=== PATIENT | female | born 1995 | race Caucasian/White ===

== ENCOUNTER → 2016-12-18 | Outpatient (CLI) | payer BC, OTHER ==
[2016-12-18 16:52] LABS: CH 30.4; HCT 37.7 % (34.0-46.0); HDW 2.46; HGB 12.9 gm/dL (11.4-16.0); MCH 30.8 pg (25.0-35.0); MCHC 34.3 g/dL (31.0-37.0); Mean Platelet Volume 6.7; WBC 9.9 k/uL (3.8-10.6)
[2016-12-18 17:07] LABS: Glucose 71 mg/dL (74-99); Non-African American GFR(MDRD) >60 (>60 ml/min/1.73 sqM)
[2016-12-18 17:38] LABS: Hepatitis B Surface Ag Index 0.05
[2016-12-19 02:04] LABS: Treponemal Ab Non-Reactive (Non-Reactive)
[2016-12-19 05:19] LABS: Toxoplasma Antibody (IgG) <3.0 IU/mL (<7.2)
== END | disposition home or self-care (01) ==
LOC: LABWHC1 16:19
PROVIDERS: ATTEND Obstetrics & Gynecology
DX: Z34.80 Encounter for supervision of other normal pregnancy, unspecified trimester (principal)
CPT/HCPCS: 36415; 82565; 82947; 85027; 86762; 86777; 86778; 86780; 86850; 86900; 86901; 87340

== ENCOUNTER 2017-05-11 02:25 | Inpatient (IN) | payer BC, OTHER ==
[2017-05-11] MEDS ORDERED: LIDOCAINE 1% (PF) 10 MG/ML (30 ML SDV) SQ PRN (04:11)
[2017-05-11] MEDS ORDERED: METHYLERGONOVINE 0.2 MG/ML 1 ML AMP IM PRN (04:11)
[2017-05-11] MEDS ORDERED: TERBUTALINE 1 MG/ML VIAL SQ PRN (04:11)
[2017-05-11] MEDS ORDERED: OXYTOCIN 10 UNIT/ML 1 ML VIAL IM PRN (04:11)
[2017-05-11] MEDS ORDERED: CARBOPROST TROMETHAMINE 250 MCG/ML 1 ML AMP IM PRN (04:11)
[2017-05-11] MEDS: LACTATED RINGERS 1,000 ML IV SCH ×2 (04:20→04:48)
[2017-05-11 04:25] LABS: Basophils % (A) 0 %; Eosinophils # (A) 0.1 k/uL (0-0.7); Eosinophils % (A) 1 %; HCT 34.2 % (34.0-46.0); HGB 11.4 gm/dL (11.4-16.0); Lymphocytes # (A) 1.6 k/uL (1.0-4.8); Lymphocytes % (A) 16 %; MCH 28.6 pg (25.0-35.0); MCHC 33.5 g/dL (31.0-37.0); MCV 85.4 fL (80.0-100.0); Mean Platelet Volume 7.4; Monocytes # (A) 0.7 k/uL (0-1.0); Monocytes % (A) 7 %; Neutrophils # (A) 7.3 k/uL (1.3-7.7); Neutrophils % (A) 73 %; Platelet Count 202 k/uL (150-450); RDW 14.4 % (11.5-15.5); WBC 10.1 k/uL (3.8-10.6)
[2017-05-11 04:42] VITALS: BMI 33.3
[2017-05-11] MEDS ORDERED: fentaNYL (PF) 50 MCG/ML 5 ML AMP ONE (04:53)
[2017-05-11] MEDS ORDERED: BUPIVACAINE (PF) 0.25% 30 ML VIAL ONE (04:53)
[2017-05-11] MEDS ORDERED: SODIUM CHLORIDE 0.9% 100 ML BAG ONE (04:53)
--- NOTE | 2017-05-11 07:24 | P.HPOB ---
History of Present Illness H&P Date: 05/11/17 Chief Complaint: Contractions This is a 21-year-old female 2 para 1 with an estimated date of confinement of 05/10/2017, estimated gestational age of 40 and one sevenths weeks, who presents to labor and delivery with complaints of contractions since yesterday evening. They became more intense and slightly closer together and therefore she came in. She did make cervical change in triage over one hour. She is therefore admitted for active labor. Her care has been with Dr. Mejia and has been uncomplicated per patient. labs: GC/Chlamydia-negative Rubella-immune Syphilis antibody-negative nonreactive Toxoplasma-negative Random glucose-71 Hepatitis B surface antigen-negative Hemoglobin-12.9 Blood type-O+ Antibody screen-negative Obstetrical ultrasound-normal anatomy One hour Glucola-105 Group B streptococcus-negative Obstetrical history: . History of 1 vaginal delivery at term. Gynecologic history: Negative Review of Systems Constitutional: Denies chills, Denies fever Eyes: denies blurred vision, denies pain Ears, nose, mouth and throat: Denies headache, Denies sore throat Cardiovascular: Denies chest pain, Denies shortness of breath Respiratory: Denies cough Gastrointestinal: Reports abdominal pain (Irregular contractions) Genitourinary: Reports pelvic pain, Reports Musculoskeletal: Reports low back pain Integumentary: Denies pruritus, Denies rash Neurological: Denies numbness, Denies weakness Psychiatric: Denies anxiety, Denies depression Past Medical History Past Medical History: No Reported History History of Any Multi-Drug Resistant Organisms: None Reported Past Surgical History: No Surgical Hx Reported Past Anesthesia/Blood Transfusion Reactions: No Reported Reaction Past Psychological History: No Psychological Hx Reported Smoking Status: Never smoker Past Alcohol Use History: None Reported Past Drug Use History: None Reported - Past Family History Mother Family Medical History: No Reported History Medications and Allergies Home Medications Medication Instructions Recorded Confirmed Type Pnv,Calcium 72/Iron/Folic Acid 1 tab PO DAILY 04/05/16 04/05/16 History [ Plus Tablet] Allergies Allergy/AdvReac Type Severity Reaction Status Date / Time No Known Allergies Allergy Verified 04/05/16 06:12 Exam Osteopathic Statement: *. No significant issues noted on an osteopathic structural exam other than those noted in the History and Physical/Consult. - Vital Signs Vital signs: Vital Signs Temp Pulse Resp BP 02/03/18 02:41 97.6 F 84 18 115/53 Intake and Output 05/10/17 05/11/17 05/11/17 22:59 06:59 14:59 Other: Weight 82.554 kg HEENT: Within normal limits Heart: Regular rate and rhythm Lungs: Clear to auscultation bilaterally Abdomen: Cervix: Initially was 5 cm in triage and did make change to 6 cm over 1 hour period of time. heart tones: Reactive Contractions: Every 5-7 minutes Extremities: Negative Homans Results Result Diagrams: 05/11/17 04:15 Assessment and Plan (1) 40 weeks gestation of Current Visit: Yes Status: Acute Code(s): Z3A.40 - 40 WEEKS GESTATION OF SNOMED Code(s): 37041595 Plan: Admission for active labor. Epidural anesthesia. Expectant management.
[2017-05-11] MEDS ORDERED: OXYTOCIN 20 UNITS/1000 ML NS 1,000 ML IV SCH ×2 (08:30→10:32)
[2017-05-11] MEDS ORDERED: LANOLIN CREAM 5 GM TUBE TOPICAL PRN (10:32)
[2017-05-11] MEDS ORDERED: WITCH HAZEL 1 EACH MED..PAD TOPICAL PRN (10:32)
[2017-05-11] MEDS ORDERED: ZOLPIDEM 5 MG TAB PO PRN (10:32)
[2017-05-11] MEDS ORDERED: diphenhydrAMINE 50 MG CAP PO PRN (10:32)
[2017-05-11] MEDS ORDERED: HYDROCORTISONE 2.5% RECTAL CREAM 30 GM TUBE RECTAL PRN (10:32)
[2017-05-11] MEDS ORDERED: diphenhydrAMINE 50 MG/ML 1 ML VIAL IVP PRN ×2 (10:32)
[2017-05-11] MEDS ORDERED: BENZOCAINE/MENTHOL SPRAY 1 GM/SPRAY AEROSOL TOPICAL PRN (10:32)
[2017-05-11] MEDS ORDERED: diphenhydrAMINE 25 MG CAP PO PRN (10:32)
[2017-05-11] MEDS ORDERED: SIMETHICONE 80 MG CHEWABLE PO PRN (10:32)
--- NOTE | 2017-05-11 10:40 | P.PROBDLV ---
Vaginal Delivery Note - . Vaginal Delivery Note: The patient progressed to complete dilation after epidural anesthesia and oxytocin augmentation of labor. She did have artificial rupture of membranes with clear fluid noted. 's head came to a crown. With one further push, the infant's head delivered across the perineum followed by the anterior shoulder. Nose and mouth were bulb suctioned. With one further push, the remainder the easily delivered and was placed on mother's abdomen. Cord was clamped and cut and was taken to warmer for evaluation. A viable male was noted with scores of 8 at 1 minute and 9 at 5 minutes and infant weight of 8 lbs. 3 oz. Placenta delivered shortly thereafter, intact, with a three-vessel cord. Uterus did contract fairly well after oxytocin was given and uterine massage was carried out. Bladder was also drained with a catheter. Inspection of the perineum revealed a right periurethral laceration and a first-degree perineal laceration. These areas were anesthetized with 1% lidocaine. The right periurethral laceration was sutured with 3-0 Vicryl suture in a running locked fashion. The first-degree laceration was sutured with 2-0 Vicryl suture in a running locked fashion. Estimated blood loss is approximately 200 mL's. Mother and are in stable condition.
[2017-05-11] MEDS: SENNOSIDES-DOCUSATE SODIUM 1 EACH TAB PO SCH ×2 (15:09→21:06)
[2017-05-11] MEDS: IBUPROFEN 600 MG TAB PO PRN (21:06)
[2017-05-11 21:32] VITALS: TEMP 98
[2017-05-12] MEDS: IBUPROFEN 600 MG TAB PO PRN ×3 (02:12→18:26)
[2017-05-12 07:19] LABS: Basophils % (A) 0 %; Eosinophils # (A) 0.1 k/uL (0-0.7); Eosinophils % (A) 1 %; HCT 31.7 % (34.0-46.0); HGB 10.4 gm/dL (11.4-16.0); Lymphocytes # (A) 1.6 k/uL (1.0-4.8); Lymphocytes % (A) 18 %; MCH 28.4 pg (25.0-35.0); MCHC 32.7 g/dL (31.0-37.0); MCV 86.8 fL (80.0-100.0); Mean Platelet Volume 7.6; Monocytes # (A) 0.5 k/uL (0-1.0); Monocytes % (A) 6 %; Neutrophils # (A) 6.3 k/uL (1.3-7.7); Neutrophils % (A) 72 %; Platelet Count 173 k/uL (150-450); RBC 3.65 m/uL (3.80-5.40); RDW 14.7 % (11.5-15.5); WBC 8.7 k/uL (3.8-10.6)
[2017-05-12] MEDS: ACETAMINOPHEN TAB 325 MG TAB PO PRN ×2 (08:04→22:40)
[2017-05-12] MEDS: SENNOSIDES-DOCUSATE SODIUM 1 EACH TAB PO SCH ×2 (08:23→16:25)
--- NOTE | 2017-05-12 12:10 | P.PNOBGVD ---
Subjective - Subjective Principal diagnosis: Status post vaginal delivery day #1 Interval history: Patient is doing well. She is breast-feeding. Lochia is decreasing. Pain is well-controlled with ibuprofen. The baby did have an apneic episode last night and therefore she plans to stay 1 more night. Patient reports: Reports appetite normal, Reports voiding normally, Reports pain well controlled, Reports ambulating normally : nursing well Objective - Latest Vital Signs Latest vital signs: Vital Signs Temp Pulse Resp BP 05/12/17 07:52 98 F 94 16 133/74 05/12/17 00:00 98 F 80 15 120/74 05/11/17 20:00 98 F 75 15 115/70 05/11/17 16:00 98.4 F 74 16 111/77 05/11/17 12:43 98.4 F 61 14 117/57 05/11/17 12:13 52 L 14 113/57 - Exam Extremities: Present: normal. Absent: tenderness Abdomen: Present: normal appearance, soft. Absent: distention, tenderness Uterus: Present: normal, firm. Absent: tenderness - Labs Labs: Abnormal Lab Results - Last 24 Hours (Table) 05/12/17 Range/Units 07:05 RBC 3.65 L (3.80-5.40) m/uL Hgb 10.4 L (11.4-16.0) gm/dL Hct 31.7 L (34.0-46.0) % Assessment and Plan Assessment: Impression is status post vaginal delivery day #1 (1) 40 weeks gestation of Current Visit: Yes Status: Acute Code(s): Z3A.40 - 40 WEEKS GESTATION OF SNOMED Code(s): 27165069 Plan: Plan is to continue with care today. Anticipate discharge home tomorrow.
[2017-05-13 00:29] VITALS: BP 119/62; PULSE 78; RESP 15
[2017-05-13] MEDS: IBUPROFEN 600 MG TAB PO PRN ×2 (05:35→14:01)
--- NOTE | 2017-05-13 06:15 | P.PNOBGVD ---
Subjective - Subjective Patient reports: Reports appetite normal, Reports voiding normally, Reports pain well controlled, Reports ambulating normally : doing well Objective - Latest Vital Signs Latest vital signs: Vital Signs Temp Pulse Resp BP 05/13/17 00:00 98 F 78 15 119/62 05/12/17 16:00 98 F 86 16 126/74 05/12/17 07:52 98 F 94 16 133/74 - Exam Lungs: bilateral: normal Chest: Normal S1, Normal S2 Extremities: Present: normal Abdomen: Present: normal appearance, soft Uterus: Present: normal, firm - Labs Labs: Abnormal Lab Results - Last 24 Hours (Table) 05/12/17 Range/Units 07:05 RBC 3.65 L (3.80-5.40) m/uL Hgb 10.4 L (11.4-16.0) gm/dL Hct 31.7 L (34.0-46.0) % Assessment and Plan Assessment: day #2. Patient is resting without complaints. Vital signs are stable she is afebrile. Uterus is firm nontender she's having normal lochia. My impression is a normal course. Plan is to continue routine care discharge home later today. (1) 40 weeks gestation of Current Visit: Yes Status: Acute Code(s): Z3A.40 - 40 WEEKS GESTATION OF SNOMED Code(s): 21270279
--- NOTE | 2017-05-13 06:15 | P.DS ---
Providers Date of admission: 05/11/17 04:13 Expected date of discharge: 05/13/17 Attending physician: Pee Mejia Primary care physician: Ronit Muñoz - Discharge Diagnosis(es) (1) 40 weeks gestation of Current Visit: Yes Status: Acute Hospital Course: Please see dictated H&P for intimate details of this patient's admission. Brief summary this pleasant 21-year-old 2 para 1 female 40 and one sevenths weeks gestation admitted to labor and delivery in active labor. Patient quickly goes on have a vaginal delivery viable male infant. Please see dictated delivery note. day #2 patient's felt be stable for discharge home follow up with me in 6 weeks. Procedures: Normal spontaneous vaginal delivery. Patient Condition at Discharge: Good Plan - Discharge Summary New Discharge Prescriptions: New Ibuprofen [Motrin] 600 mg PO Q6HR PRN #40 tab PRN Reason: Mild Pain Or Fever >= 100.5 No Action Pnv,Calcium 72/Iron/Folic Acid [ Plus Tablet] 1 tab PO DAILY Discharge Medication List Pnv,Calcium 72/Iron/Folic Acid [ Plus Tablet] 1 tab PO DAILY 04/05/16 [ History] Ibuprofen [Motrin] 600 mg PO Q6HR PRN #40 tab 05/13/17 [Rx] Follow up Appointment(s)/Referral(s): Pee Mejia MD [STAFF PHYSICIAN] - 6 Weeks Patient Instructions/Handouts: Vaginal Delivery (DC) Activity/Diet/Wound Care/Special Instructions: No intercourse or anything per vagina for 6 weeks. Please call if any fever, chills, excessive vaginal bleeding, and/or abdominal pain. Discharge Disposition: HOME SELF-CARE
[2017-05-13] MEDS: SENNOSIDES-DOCUSATE SODIUM 1 EACH TAB PO SCH (08:00)
--- NOTE | 2017-05-13 08:37 | P.MSEPDOC ---
Presenting Problems - Arrival Data Date of Arrival on Unit: 05/11/17 Time of Arrival on Unit: 04:15 Mode of Transport: Ambulatory - Complaint OB-Reason for Admission/Chief Complaint: Possible Onset of Labor Comment: Contractions that started at 1645 yesterday and are every 7-10 minutes apart Medical History - Information : 2 Para: 1 Term: 1 : 0 Abortions: Spontaneous or Elective: 0 Number of Living Children: 1 - Gestational Age Gestational Age by JESUS (wks/days): 40 Weeks and 1 Days - History Complications: No Care Review of Systems - Review of Systems Constitutional: No problems Breast: No problems ENT: No problems Cardiovascular: No problems Respiratory: No problems Gastrointestinal: No problems Genitourinary: No problems Musculoskeletal: No problems Neurological: No problems Skin: No problems Vital Signs - Temperature Temperature: 98 F Temperature Source: Oral - Pulse Right Brachial Pulse Rate: 78 Pulse Assessment Method: Automatic Cuff - Respirations Respiratory Rate: 15 Oxygen Delivery Method: Room Air - Blood Pressure Right Arm Blood Pressure: 119/62 Blood Pressure Mean: 81 Blood Pressure Source: Automatic Cuff Medical Screen Scoring (Pre) - Cervical Exam Dilation: 4-7 cm = 2 Effacement: More than 50% = 2 Membranes: Intact - Uterine Contractions Frequency: > 5 minutes apart = 1 Duration: N/A Intensity: N/A - Maternal Vital Signs Maternal Temperature: N/A Maternal Blood Pressure: N/A Signs of Preeclampsia: N/A Maternal Respirations: N/A - Pain Assessment Pain Location and Character: Lower, Abdomen Pain Scale Used: Numeric (1 - 10) Pain Intensity: 7 Pain Description: Cramping - Maternal Trauma Maternal Trauma: N/A - Assessment Baseline FHR: 135 Heart Rate - NICHD Category: Category I (Normal) = 0 NST: Reactive Position: N/A Station: N/A - Total Score Total Score (Pre): 5 - Level of Risk Level of Risk: Low (0-5) Medical Screen Scoring (Post) - Cervical Exam Dilation: 4-7 cm = 2 Effacement: More than 50% = 2 Membranes: Intact - Uterine Contractions Frequency: > 5 minutes apart = 1 Duration: > 40 seconds = 2 Intensity: Contraction palpated strong = 1 - Maternal Vital Signs Maternal Temperature: N/A Maternal Blood Pressure: N/A Signs of Preeclampsia: N/A Maternal Respirations: N/A - Pain Assessment Pain Location and Character: Abdomen, Hip Pain Scale Used: Numeric (1 - 10) Pain Intensity: 9 Pain Management Goal: 2 Pain Description: *Acute, Aching, Burning, Cramping Pain Radiation Location: none Pain Frequency: Intermittent Pain Duration: 4 Pain Duration Units: Hours Pain Behavior: Fidgeting Pain Aggravating Factors: Contractions - Maternal Trauma Maternal Trauma: N/A - Assessment Heart Rate: 125 Heart Rate - NICHD Category: Category I (Normal) = 0 NST: Reactive Position: N/A Station: N/A - Total Score Total Score (Post): 8 - Post Treatment Level of Risk Post Treatment Level of Risk: Medium (6-9) Physician Notification (Post) - Physician Notified Physician Notified Date: 05/11/17 Physician Notified Time: 04:11 Physician/Practitioner Notified:: Dr Muñoz New Order Received: Yes Disposition - Disposition OB Disposition: Admit, LDRP Suite I agree with the RN Medical Screening Exam: Yes Risk & Benefit of care provided described in d/c instruction: Yes Diagnosis: ENCOUNTER FOR FULL-TERM UNCOMPLICATED DELIVERY
== END 2017-05-13 18:10 | disposition home or self-care (01) | DRG 775 ==
LOC: FBPOP 02:25 → 4FBP 04:13
PROVIDERS: ADMIT Obstetrics & Gynecology; ATTEND Obstetrics & Gynecology
PROC: 10E0XZZ Delivery of Products of Conception, External Approach (ICD-10-PCS; principal; 2017-05-11)
PROC: 10907ZC Drainage of Amniotic Fluid, Therapeutic from Products of Conception, Via Natural or Artificial Opening (ICD-10-PCS; 2017-05-11)
PROC: 0HQ9XZZ Repair Perineum Skin, External Approach (ICD-10-PCS; 2017-05-11)
PROC: 0UQMXZZ Repair Vulva, External Approach (ICD-10-PCS; 2017-05-11)
PROC: 00HU33Z Insertion of Infusion Device into Spinal Canal, Percutaneous Approach (ICD-10-PCS; 2017-05-11)
PROC: 3E0R3NZ Introduction of Analgesics, Hypnotics, Sedatives into Spinal Canal, Percutaneous Approach (ICD-10-PCS; 2017-05-11)
DX: O48.0 Post-term pregnancy (principal); O71.82 Other specified trauma to perineum and vulva; O70.0 First degree perineal laceration during delivery; Z37.0 Single live birth; Z3A.40 40 weeks gestation of pregnancy
CPT/HCPCS: 59025; 85025; 88307; 99213

== ENCOUNTER 2018-05-13 05:27 | Emergency (ER) | payer BC, OTHER ==
[2018-05-13 05:35] VITALS: RESP 18
--- NOTE | 2018-05-13 06:16 | ED ---
Female Urogenital HPI - General Source: patient, family Mode of arrival: ambulatory Limitations: no limitations - History of Present Illness Complaint: vaginal bleeding -: hour(s) Location: LLQ Radiation: non-radiating Severity: moderate Quality: cramping Consistency: now resolved Improves with: none Worsens with: none Patient : Yes Number of weeks : 10 - Related Data : 3 Para: 2 <Prashanth Xiao - Last Filed: 05/13/18 07:47> <Joe Garcia - Last Filed: 05/13/18 08:59> - General Chief complaint: Vaginal Bleeding Stated complaint: Vaginal Bleeding 10 Weeks Time Seen by Provider: 05/13/18 06:05 - History of Present Illness Initial comments: Patient is 22-year-old woman, , approximately 10 weeks . She states that she had a dream that she had urinated, and awakened to find that she had had some vaginal bleeding. The patient states she did have a little bit of cramping in the left lower quadrant of the preceding evening. She currently is not having pain. (Prashanth Xiao) - Related Data Home Medications Medication Instructions Recorded Confirmed Pnv,Calcium 72/Iron/Folic Acid 1 tab PO DAILY 04/05/16 05/13/18 [ Plus Tablet] Allergies Allergy/AdvReac Type Severity Reaction Status Date / Time No Known Allergies Allergy Verified 05/13/18 07:47 Review of Systems ROS Other: All systems not noted in ROS Statement are negative. Constitutional: Denies: fever, chills Respiratory: Denies: cough, dyspnea Cardiovascular: Denies: chest pain, palpitations, edema, syncope Gastrointestinal: Reports: abdominal pain. Denies: nausea, vomiting, diarrhea, constipation Genitourinary: Reports: abnormal menses. Denies: dysuria, frequency, hematuria Musculoskeletal: Denies: back pain Skin: Denies: rash Neurological: Denies: headache Hematological/Lymphatic: Denies: easy bleeding <Prashanth Xiao - Last Filed: 05/13/18 07:47> ROS Other: All systems not noted in ROS Statement are negative. <Joe Garcia - Last Filed: 05/13/18 08:59> ROS Statement: Those systems with pertinent positive or pertinent negative responses have been documented in the HPI. Past Medical History Past Medical History: No Reported History History of Any Multi-Drug Resistant Organisms: None Reported Past Surgical History: No Surgical Hx Reported Past Anesthesia/Blood Transfusion Reactions: No Reported Reaction Past Psychological History: No Psychological Hx Reported Smoking Status: Never smoker Past Alcohol Use History: None Reported Past Drug Use History: None Reported - Past Family History Mother Family Medical History: No Reported History <GeorgiaPrashanth amaya - Last Filed: 05/13/18 07:47> General Exam Limitations: no limitations General appearance: alert, in no apparent distress Head exam: Present: atraumatic, normocephalic Eye exam: Present: normal appearance. Absent: scleral icterus, conjunctival injection ENT exam: Present: normal oropharynx Respiratory exam: Present: normal lung sounds bilaterally. Absent: respiratory distress, wheezes, rales, rhonchi, stridor Cardiovascular Exam: Present: regular rate, normal rhythm, normal heart sounds. Absent: systolic murmur, diastolic murmur, rubs, gallop GI/Abdominal exam: Present: soft. Absent: distended, tenderness, guarding, rebound, rigid, mass, pulsatile mass, hernia External exam: Present: normal external exam, other (RN [place] present). Absent : erythema, swelling, lesions, lacerations, ecchymosis Speculum exam: Present: vaginal bleeding. Absent: erythema, vaginal discharge, cervical discharge, foreign body, tissue, laceration By manual exam: Present: uterine enlargement (8-10 weeks size). Absent: cervical motion tenderness, adnexal tenderness, adnexal mass, uterine tenderness Extremities exam: Present: normal inspection, normal capillary refill. Absent: pedal edema, calf tenderness Back exam: Present: normal inspection. Absent: CVA tenderness (R), CVA tenderness (L) Neurological exam: Present: alert Skin exam: Present: warm, dry, intact, normal color. Absent: rash <DameonPrashanth - Last Filed: 05/13/18 07:47> Vital Signs 05/13/18 05/13/18 05:31 07:59 Temperature 98.4 F 98.8 F Pulse Rate 85 81 Respiratory 18 18 Rate Blood Pressure 112/75 110/63 O2 Sat by Pulse 99 100 Oximetry Medical Decision Making <DameonPrashanth Last Filed: 05/13/18 07:47> - Lab Data Result diagrams: 05/13/18 06:20 05/13/18 06:20 <Joe Garcia - Last Filed: 05/13/18 08:59> - Medical Decision Making Patient reevaluated after sign out, resting comfortably, denies significant vaginal bleeding. Patient's care was signed out awaiting ultrasound. Patient is , currently 10 weeks presenting with vaginal bleeding and mild cramping. Patient is O+, stable hemoglobin, normal CBC, CMP. Urinalysis does have blood, no significant signs of infection, ultrasound obtained shows single live intrauterine 10 weeks 2 days with a heart rate 166, there is a large subchorionic hemorrhage measuring 6.4 cm. Case is discussed with the patient's CHILD STUDY TEAM DIRECTOR, Dr. Mejia, , will see the patient and the office tomorrow at 8:30 AM. Pelvic rest Return parameters discussed (Joe Garcia) - Lab Data Lab Results 05/13/18 05/13/18 05/13/18 Range/Units 05:55 06:20 06:20 WBC (3.8-10.6) k/uL RBC (3.80-5.40) m/uL Hgb (11.4-16.0) gm/dL Hct (34.0-46.0) % MCV (80.0-100.0) fL MCH (25.0-35.0) pg MCHC (31.0-37.0) g/dL RDW (11.5-15.5) % Plt Count (150-450) k/uL Neutrophils % % Lymphocytes % % Monocytes % % Eosinophils % % Basophils % % Neutrophils # (1.3-7.7) k/uL Lymphocytes # (1.0-4.8) k/uL Monocytes # (0-1.0) k/uL Eosinophils # (0-0.7) k/uL Basophils # (0-0.2) k/uL Sodium (137-145) mmol/L Potassium (3.5-5.1) mmol/L Chloride (98-107) mmol/L Carbon Dioxide (22-30) mmol/L Anion Gap mmol/L BUN (7-17) mg/dL Creatinine (0.52-1.04) mg/dL Est GFR (CKD-EPI)AfAm (>60 ml/min/1.73 sqM) Est GFR (CKD-EPI)NonAf (>60 ml/min/1.73 sqM) Glucose (74-99) mg/dL Calcium (8.4-10.2) mg/dL Total Bilirubin (0.2-1.3) mg/dL AST (14-36) U/L ALT (9-52) U/L Alkaline Phosphatase (38-126) U/L Total Protein (6.3-8.2) g/dL Albumin (3.5-5.0) g/dL HCG, Quant 677631.0 mIU/mL Urine Color Yellow Urine Appearance Cloudy H (Clear) Urine pH 5.5 (5.0-8.0) Ur Specific [place] 1.024 (1.001-1.035) Urine Protein 1+ H (Negative) Urine Glucose (UA) Negative (Negative) Urine Ketones Negative (Negative) Urine Blood Large H (Negative) Urine Nitrite Negative (Negative) Urine Bilirubin Negative (Negative) Urine Urobilinogen <2.0 (<2.0) mg/dL Ur Leukocyte Esterase Trace H (Negative) Urine RBC 147 H (0-5) /hpf Urine WBC 4 (0-5) /hpf Ur Squamous Epith Cells 31 H (0-4) /hpf Calcium Oxalate Crystal Occasional H (None) /hpf Hyaline Casts 1 (0-2) /lpf Urine Mucus Occasional H (None) /hpf Blood Type O Positive Blood Type Recheck No 05/13/18 05/13/18 Range/Units 06:20 06:20 WBC 7.7 (3.8-10.6) k/uL RBC 4.09 (3.80-5.40) m/uL Hgb 12.1 (11.4-16.0) gm/dL Hct 36.0 (34.0-46.0) % MCV 88.2 (80.0-100.0) fL MCH 29.5 (25.0-35.0) pg MCHC 33.5 (31.0-37.0) g/dL RDW 13.2 (11.5-15.5) % Plt Count 224 (150-450) k/uL Neutrophils % 69 % Lymphocytes % 20 % Monocytes % 5 % Eosinophils % 3 % Basophils % 0 % Neutrophils # 5.3 (1.3-7.7) k/uL Lymphocytes # 1.6 (1.0-4.8) k/uL Monocytes # 0.4 (0-1.0) k/uL Eosinophils # 0.3 (0-0.7) k/uL Basophils # 0.0 (0-0.2) k/uL Sodium 138 (137-145) mmol/L Potassium 4.1 (3.5-5.1) mmol/L Chloride 109 H (98-107) mmol/L Carbon Dioxide 21 L (22-30) mmol/L Anion Gap 8 mmol/L BUN 9 (7-17) mg/dL Creatinine 0.52 (0.52-1.04) mg/dL Est GFR (CKD-EPI)AfAm >90 (>60 ml/min/1.73 sqM) Est GFR (CKD-EPI)NonAf >90 (>60 ml/min/1.73 sqM) Glucose 89 (74-99) mg/dL Calcium 9.2 (8.4-10.2) mg/dL Total Bilirubin 0.2 (0.2-1.3) mg/dL AST 16 (14-36) U/L ALT 19 (9-52) U/L Alkaline Phosphatase 39 (38-126) U/L Total Protein 6.5 (6.3-8.2) g/dL Albumin 3.6 (3.5-5.0) g/dL HCG, Quant mIU/mL Urine Color Urine Appearance (Clear) Urine pH (5.0-8.0) Ur Specific [place] (1.001-1.035) Urine Protein (Negative) Urine Glucose (UA) (Negative) Urine Ketones (Negative) Urine Blood (Negative) Urine Nitrite (Negative) Urine Bilirubin (Negative) Urine Urobilinogen (<2.0) mg/dL Ur Leukocyte Esterase (Negative) Urine RBC (0-5) /hpf Urine WBC (0-5) /hpf Ur Squamous Epith Cells (0-4) /hpf Calcium Oxalate Crystal (None) /hpf Hyaline Casts (0-2) /lpf Urine Mucus (None) /hpf Blood Type Blood Type Recheck Disposition <Prashanth Xiao - Last Filed: 05/13/18 07:47> Is patient prescribed a controlled substance at d/c from ED?: No Time of Disposition: 08:59 <Joe Garcia - Last Filed: 05/13/18 08:59> Clinical Impression: Subchorionic hemorrhage in first trimester, Vaginal bleeding Disposition: HOME SELF-CARE Condition: Fair Instructions (If sedation given, give patient instructions): Subchorionic Hemorrhage (ED) Additional Instructions: Follow-up with Dr. Mejia tomorrow morning at 8:30 AM Referrals: Pee Mejia MD [Primary Care Provider] - 1-2 days
[2018-05-13 07:06] LABS: Appearance,Urine Cloudy (Clear); Bilirubin,Urine Negative (Negative); Blood,Urine Large (Negative); Calcium Oxalate Crystals,Urine Occasional /hpf; Color,Urine Yellow; Glucose,Urine (UA) Negative (Negative); Hyaline Casts,Urine 1 /lpf (0-2); Ketones,Urine Negative (Negative); Leukocyte Esterase,Urine Trace (Negative); Mucus,Urine Occasional /hpf; Nitrite,Urine Negative (Negative); PH, Urine 5.5 (5.0-8.0); Protein,Urine 1+ (Negative); RBC,Urine 147 /hpf (0-5); Specific Gravity,Urine 1.024 (1.001-1.035); Squamous Epithelial Cell,Urine 31 /hpf (0-4); Urobilinogen,Urine <2.0 mg/dL (<2.0); WBC,Urine 4 /hpf (0-5)
[2018-05-13 07:51] LABS: ALT 19 U/L (9-52); AST 16 U/L (14-36); Albumin 3.6 g/dL (3.5-5.0); Alkaline Phosphatase 39 U/L (38-126); Anion Gap 8 mmol/L; Blood Urea Nitrogen 9 mg/dL (7-17); Calcium 9.2 mg/dL (8.4-10.2); Carbon Dioxide 21 mmol/L (22-30); Chloride 109 mmol/L (98-107); Glucose 89 mg/dL (74-99); Potassium 4.1 mmol/L (3.5-5.1); Sodium 138 mmol/L (137-145); Total Bilirubin 0.2 mg/dL (0.2-1.3); Total Protein 6.5 g/dL (6.3-8.2)
[2018-05-13 07:53] LABS: Basophils % (A) 0 %; Eosinophils # (A) 0.3 k/uL (0-0.7); Eosinophils % (A) 3 %; HGB 12.1 gm/dL (11.4-16.0); Lymphocytes # (A) 1.6 k/uL (1.0-4.8); Lymphocytes % (A) 20 %; MCH 29.5 pg (25.0-35.0); MCHC 33.5 g/dL (31.0-37.0); MCV 88.2 fL (80.0-100.0); Mean Platelet Volume 6.9; Monocytes # (A) 0.4 k/uL (0-1.0); Monocytes % (A) 5 %; Neutrophils # (A) 5.3 k/uL (1.3-7.7); Neutrophils % (A) 69 %; Platelet Count 224 k/uL (150-450); RBC 4.09 m/uL (3.80-5.40); RDW 13.2 % (11.5-15.5); WBC 7.7 k/uL (3.8-10.6)
[2018-05-13 08:04] VITALS: TEMP 98.8
--- NOTE | 2018-05-13 08:13 | US ---
EXAMINATION TYPE: Transabdominal DATE OF EXAM: 07/09/17 COMPARISON: NONE CLINICAL HISTORY: bleeding. Cramping and bleeding x 1 day, 3, para 2 EXAM PERFORMED: Transabdominal (TA) EXAM MEASUREMENTS: GESTATIONAL AGE / DATING Physician Established: (10 weeks/1 days) EDC: 12/08/2018 Dates by LMP: (13 weeks/0 days) EDC: 11/18/2018 Dates by First Scan: This is 1st scan Dates by Current Scan for: (10 weeks/2 days) EDC: 12/07/2018 MATERNAL ANATOMY Uterus: 12.6 x 6.7 x 9.2cm, anteverted Right Ovary: 4.7 x 1.9 x 3.0cm Left Ovary: 3.0 x 1.7 x 1.9cm Post CDS / Adnexa: wnl Presence of free fluid: no Presence of corpus luteal cyst: not seen at this time Presence of subchorionic bleed: 6.4 x 2.9 x 5.8cm complex area adjacent to gestational sac GESTATION / SURVEY CRL: 3.4cm (10 weeks/2 days) Yolk Sac (normal less than 6mm): 4.9mm Heart Rate: 166 bpm Rhythm: Normal IUP: Viable IUP Nuchal Translucency 10-14wks (normal less than 3mm): 1.3mm Date of LMP: 02/11/2018 Beta HcG (if available): Not available at time of exam Viable single IUP measuring 10 weeks 2 days with a heart rate of 166bpm and an estimated delivery thalia e of 12/07/2018, 6.4cm complex area adjacent to gestational sac, probable subchorionic bleed. IMPRESSION: Single viable intrauterine corresponding to ultrasound age 10 weeks 2 days with estimated d ate of delivery 12/07/2018. There is a large subchorionic hemorrhage suspected.
[2018-05-13 09:06] VITALS: BP 117/64; PULSE 69
== END 2018-05-13 09:06 | disposition home or self-care (01) ==
LOC: EC 05:27
DX: O20.8 Other hemorrhage in early pregnancy (principal); Z3A.10 10 weeks gestation of pregnancy
CPT/HCPCS: 36415; 76801; 76813; 80053; 81001; 84702; 85025; 86900; 86901; 99284

== ENCOUNTER 2018-11-20 11:54 | Inpatient (IN) | payer BC, OTHER ==
[2018-11-20] MEDS ORDERED: OXYTOCIN 10 UNIT/ML 1 ML VIAL IM PRN (12:54)
[2018-11-20] MEDS ORDERED: METHYLERGONOVINE 0.2 MG/ML 1 ML AMP IM PRN (12:54)
[2018-11-20] MEDS ORDERED: TERBUTALINE 1 MG/ML VIAL SQ PRN (12:54)
[2018-11-20] MEDS ORDERED: CARBOPROST TROMETHAMINE 250 MCG/ML 1 ML AMP IM PRN (12:54)
[2018-11-20] MEDS ORDERED: LIDOCAINE 0.5% (PF) 5 MG/ML (50 ML SDV) SQ PRN (12:54)
[2018-11-20] MEDS ORDERED: AMPICILLIN 2,000 MG in SODIUM CHLORIDE 0.9% 100 ML IVPB STA (12:55)
[2018-11-20] MEDS ORDERED: OXYTOCIN 30 UNITS/500 ML NS 30 UNIT in SALINE 1 500ML.BAG IV SCH (13:00)
--- NOTE | 2018-11-20 13:02 | P.HPOB ---
History of Present Illness H&P Date: 11/20/18 Chief Complaint: Leaking of fluid. This patient is a pleasant 23-year-old 3 para 2 female estimated date of confinement 12/08/2018 estimated gestational age 37 weeks and 3 days who presents to labor and delivery complaining of leaking fluid since 12:30 last evening. Patient said she had several episodes of leaking of fluid throughout the night she did not come into labor and delivery because she felt it was her urine. Amnio sure here is strongly positive. care has been uncomplicated with the exception of a subchorionic bleed which resolved. Review of Systems Genitourinary: Reports Menstruation: Reports amenorrhea Past Medical History Past Medical History: No Reported History History of Any Multi-Drug Resistant Organisms: None Reported Past Surgical History: No Surgical Hx Reported Past Anesthesia/Blood Transfusion Reactions: No Reported Reaction Past Psychological History: No Psychological Hx Reported Smoking Status: Never smoker Past Alcohol Use History: None Reported Past Drug Use History: None Reported - Past Family History Mother Family Medical History: No Reported History Medications and Allergies Home Medications Medication Instructions Recorded Confirmed Type Pnv,Calcium 72/Iron/Folic Acid 1 tab PO DAILY 04/05/16 11/20/18 History [ Plus Tablet] Allergies Allergy/AdvReac Type Severity Reaction Status Date / Time No Known Allergies Allergy Verified 11/20/18 12:01 Exam Intake and Output 11/19/18 11/20/18 11/20/18 22:59 06:59 14:59 Other: Weight 76.204 kg - OBG Physical Exam Abdomen: bowel sounds normal, no diffuse tenderness, no bruit present, no guarding noted, no hepatomegaly, no splenomegaly, no mass Vulva: both: normal Vagina: normal moisture, no discharge Cervix: no lesion (Cervix is 1-2 cm uneffaced but soft.), no discharge Uterus: enlarged (Fundal height is 38 cm) Results blood work shows she is oh positive, rubella immune, RPR nonreactive, HIV nonreactive, hepatitis B is negative, ultrasounds have been normal, Glucola was normal, group B strep was negative. Assessment and Plan Assessment: This is a pleasant 23-year-old 3 para 2 female 37-3/7 weeks gestation with premature rupture membranes that is prolonged since 12:30 last evening and no evidence of labor. Plan at this time is to proceed with induction with Pitocin and also I'm going to administer IV antibiotics due to her unlikelihood of delivering soon. The heart tones are category 1 and anticipate vaginal delivery. (1) 37 weeks gestation of Current Visit: Yes Status: Acute Code(s): Z3A.37 - 37 WEEKS GESTATION OF SNOMED Code(s): 70925378 (2) Premature rupture of membranes Current Visit: Yes Status: Acute Code(s): O42.90 - AL ROM, 7TH0 BETW RUPT & ONST LABR, UNSP WEEKS OF GEST SNOMED Code(s): 22277946
[2018-11-20] MEDS: LACTATED RINGERS 1,000 ML IV SCH ×2 (13:30→19:47)
[2018-11-20 13:39] LABS: Basophils % (A) 0 %; Eosinophils # (A) 0.1 k/uL (0-0.7); Eosinophils % (A) 1 %; HCT 35.3 % (34.0-46.0); HGB 11.3 gm/dL (11.4-16.0); Lymphocytes # (A) 1.4 k/uL (1.0-4.8); Lymphocytes % (A) 18 %; MCH 28.8 pg (25.0-35.0); Mean Platelet Volume 7.3; Monocytes # (A) 0.5 k/uL (0-1.0); Monocytes % (A) 6 %; Neutrophils # (A) 6.1 k/uL (1.3-7.7); Neutrophils % (A) 74 %; Platelet Count 241 k/uL (150-450); RBC 3.92 m/uL (3.80-5.40); WBC 8.2 k/uL (3.8-10.6)
[2018-11-20 13:57] VITALS: BMI 30.7
[2018-11-20] MEDS: AMPICILLIN 1,000 MG in SODIUM CHLORIDE 0.9% 50 ML IVPB SCH ×2 (17:54→22:23)
[2018-11-21] MEDS ORDERED: LANOLIN CREAM 5 GM TUBE TOPICAL PRN (01:59)
[2018-11-21] MEDS ORDERED: WITCH HAZEL 1 EACH MED..PAD TOPICAL PRN (01:59)
[2018-11-21] MEDS ORDERED: SIMETHICONE 80 MG CHEWABLE PO PRN (01:59)
[2018-11-21] MEDS ORDERED: MEASLES-MUMPS-RUBELLA VACC/PF 12,500 UNIT/0.5 ML VIAL SQ ONE (01:59)
[2018-11-21] MEDS ORDERED: diphenhydrAMINE 50 MG/ML 1 ML VIAL IVP PRN (01:59)
[2018-11-21] MEDS ORDERED: HYDROCORTISONE 2.5% RECTAL CREAM 30 GM TUBE RECTAL PRN (01:59)
[2018-11-21] MEDS ORDERED: BENZOCAINE/MENTHOL SPRAY 1 GM/SPRAY AEROSOL TOPICAL PRN (01:59)
[2018-11-21] MEDS ORDERED: BISACODYL 10 MG SUPP RECTAL PRN (01:59)
[2018-11-21] MEDS ORDERED: ZOLPIDEM 5 MG TAB PO PRN (01:59)
[2018-11-21] MEDS ORDERED: diphenhydrAMINE 25 MG CAP PO PRN (01:59)
[2018-11-21] MEDS ORDERED: OXYTOCIN 20 UNITS/1000 ML NS 1,000 ML IV SCH (02:00)
--- NOTE | 2018-11-21 02:08 | P.PROBDLV ---
Vaginal Delivery Note - . Vaginal Delivery Note: Normal spontaneous vaginal delivery viable female infant Apgars 9 and 9 delivery time was 0142 hours. Please see dictated H&P for intimate details of this patient's admission. Brief summary this is a pleasant 23-year-old 3 para 2 female 37-3/7 weeks gestation who is admitted to labor and delivery with spontaneous rupture membranes at approximately 12:30 last evening. Patient is given IV antibiotics due to prolonged rupture and Pitocin induction of labor. Labor progresses and she gets an epidural for pain control. Once patient gets past 5 cm she quickly goes to complete and pushes approximately one half a push and deliver is 's head over the intact perineum. The anterior and posterior shoulder and rest this 's body then spontaneously delivers without any effort. Infant has spontaneous respiration and good cry. Cord is quite short infant is late on the mother's abdomen and was allowed to pulsate then doubly clamped and cut. Vigorous viable female infant Apgars 9 and 9 delivery time is 0142 hours. After delivery of the infant the placenta spontaneously delivered intact. Inspection of perineum shows no lacerations and no repairs required. and mother stable delivery room. There are no complications. All counts correct 3.
--- NOTE | 2018-11-21 06:45 | P.MSEPDOC ---
Presenting Problems - Arrival Data Date of Arrival on Unit: 11/20/18 Time of Arrival on Unit: 11:54 Mode of Transport: Ambulatory Medical History - Information : 3 Para: 2 Term: 2 : 0 Abortions: Spontaneous or Elective: 0 Number of Living Children: 2 - Gestational Age Gestational Age by JESUS (wks/days): 37 Weeks and 4 Days Vital Signs - Temperature Temperature: 96.2 F Temperature Source: Temporal Artery Scan - Pulse Right Brachial Pulse Rate: 94 Pulse Assessment Method: Auscultation - Respirations Respiratory Rate: 18 Oxygen Delivery Method: Room Air - Blood Pressure Right Arm Blood Pressure: 120/57 Blood Pressure Mean: 78 Blood Pressure Source: Automatic Cuff I agree with the RN Medical Screening Exam: Yes Risk & Benefit of care provided described in d/c instruction: Yes Diagnosis: ENCOUNTER FOR FULL-TERM UNCOMPLICATED DELIVERY
[2018-11-21] MEDS: SENNOSIDES-DOCUSATE SODIUM 1 EACH TAB PO SCH ×2 (07:40→20:02)
[2018-11-21] MEDS: IBUPROFEN 600 MG TAB PO PRN ×2 (08:35→18:55)
[2018-11-21] MEDS ORDERED: ROPIVACAINE 100 MG, fentaNYL (PF) 200 MCG in SODIUM CHLORIDE 0.9% 76 ML EPIDURAL ONE (08:41)
[2018-11-21] MEDS: ACETAMINOPHEN TAB 325 MG TAB PO PRN ×2 (11:37→22:37)
[2018-11-22] MEDS: ACETAMINOPHEN TAB 325 MG TAB PO PRN ×2 (08:12→17:12)
--- NOTE | 2018-11-22 10:05 | P.PNOBGVD ---
Subjective - Subjective Principal diagnosis: Status post total vaginal delivery day #1 Interval history: Patient seen and examined. Denies nausea, vomiting, chest pain, shortness of breath or calf pain. Patient reports: Reports appetite normal, Reports voiding normally, Reports pain well controlled, Reports ambulating normally Mingus: doing well, nursing well Objective - Latest Vital Signs Latest vital signs: Vital Signs Temp Pulse Resp BP 11/21/18 20:27 97.7 F 62 16 127/79 - Exam Lungs: bilateral: normal Chest: Normal S1, Normal S2 Extremities: Present: normal Abdomen: Present: normal appearance, soft Uterus: Present: normal, firm Assessment and Plan (1) Normal vaginal delivery Current Visit: Yes Status: Acute Code(s): O80 - ENCOUNTER FOR FULL-TERM UNCOMPLICATED DELIVERY SNOMED Code(s): 48184983 Plan: 1. Increase ambulation 2. Continue Motrin for the cramping
[2018-11-22] MEDS: SENNOSIDES-DOCUSATE SODIUM 1 EACH TAB PO SCH ×2 (22:11→22:12)
[2018-11-23] MEDS: IBUPROFEN 600 MG TAB PO PRN ×2 (00:38→08:51)
[2018-11-23] MEDS: SENNOSIDES-DOCUSATE SODIUM 1 EACH TAB PO SCH (08:52)
[2018-11-23 09:01] VITALS: BP 111/72; PULSE 71; RESP 18; TEMP 98.3
--- NOTE | 2018-11-23 09:13 | P.DS ---
Providers Date of admission: 11/20/18 12:21 Expected date of discharge: 11/23/18 Attending physician: Pee Mejia Primary care physician: Stated None - Discharge Diagnosis(es) (1) Normal vaginal delivery Current Visit: Yes Status: Acute Hospital Course: Patient presented at 37 weeks and 2 days with spontaneous rupture of membranes. She underwent a normal vaginal delivery. Her post course was uncomplicated. She'll be discharged home day #2 in stable condition to follow-up with Dr. Mejia in 6 weeks. Plan - Discharge Summary New Discharge Prescriptions: New Ibuprofen [Motrin] 600 mg PO Q6HR PRN #40 tab PRN Reason: Mild Pain Or Fever >= 100.5 No Action Pnv,Calcium 72/Iron/Folic Acid [ Plus Tablet] 1 tab PO DAILY Discharge Medication List Pnv,Calcium 72/Iron/Folic Acid [ Plus Tablet] 1 tab PO DAILY 04/05/16 [History] Ibuprofen [Motrin] 600 mg PO Q6HR PRN #40 tab 11/21/18 [Rx] Follow up Appointment(s)/Referral(s): Pee Mejia MD [STAFF PHYSICIAN] - 6 Weeks Patient Instructions/Handouts: Vaginal Delivery (DC) Activity/Diet/Wound Care/Special Instructions: No intercourse or anything per vagina for 6 weeks. Please call if any fever, chills, excessive vaginal bleeding, and/or abdominal pain. Discharge Disposition: HOME SELF-CARE
== END 2018-11-23 10:50 | disposition home or self-care (01) | DRG 807 ==
LOC: FBPOP 11:54 → 4FBP 12:21
PROVIDERS: ADMIT Obstetrics & Gynecology; ATTEND Obstetrics & Gynecology
PROC: 10E0XZZ Delivery of Products of Conception, External Approach (ICD-10-PCS; principal; 2018-11-21)
PROC: 3E033VJ Introduction of Other Hormone into Peripheral Vein, Percutaneous Approach (ICD-10-PCS; 2018-11-21)
PROC: 00HU33Z Insertion of Infusion Device into Spinal Canal, Percutaneous Approach (ICD-10-PCS; 2018-11-21)
PROC: 3E0R3BZ Introduction of Anesthetic Agent into Spinal Canal, Percutaneous Approach (ICD-10-PCS; 2018-11-21)
DX: O42.913 Preterm premature rupture of membranes, unspecified as to length of time between rupture and onset of labor, third trimester (principal); Z37.0 Single live birth; Z3A.37 37 weeks gestation of pregnancy
CPT/HCPCS: 59025; 84112; 85025; 86850; 86900; 86901; 88307; 99213

== ENCOUNTER 2020-07-04 01:45 | Inpatient (IN) | payer BC, OTHER ==
[2020-07-04] MEDS ORDERED: CARBOPROST TROMETHAMINE 250 MCG/ML 1 ML AMP IM PRN (02:03)
[2020-07-04] MEDS ORDERED: LIDOCAINE 0.5% (PF) 5 MG/ML (50 ML SDV) SQ PRN (02:03)
[2020-07-04] MEDS ORDERED: TERBUTALINE 1 MG/ML VIAL SQ PRN (02:03)
[2020-07-04] MEDS ORDERED: OXYTOCIN 10 UNIT/ML 1 ML VIAL IM PRN (02:03)
[2020-07-04] MEDS ORDERED: METHYLERGONOVINE 0.2 MG/ML 1 ML AMP IM PRN (02:03)
[2020-07-04] MEDS ORDERED: LACTATED RINGERS 1,000 ML IV SCH ×2 (02:15)
[2020-07-04] MEDS ORDERED: OXYTOCIN 30 UNITS/500 ML NS 30 UNIT in SALINE 1 500ML.BAG IV SCH ×2 (02:15→05:00)
[2020-07-04 02:16] VITALS: RESP 16
[2020-07-04 02:38] LABS: Basophils % (A) 0 %; Eosinophils # (A) 0.1 k/uL (0-0.7); Eosinophils % (A) 1 %; HCT 36.9 % (34.0-46.0); HGB 13.2 gm/dL (11.4-16.0); Lymphocytes # (A) 1.7 k/uL (1.0-4.8); Lymphocytes % (A) 15 %; MCH 32.2 pg (25.0-35.0); MCHC 35.7 g/dL (31.0-37.0); MCV 90.2 fL (80.0-100.0); Mean Platelet Volume 9.1; Monocytes # (A) 0.7 k/uL (0-1.0); Monocytes % (A) 6 %; Neutrophils # (A) 8.6 k/uL (1.3-7.7); Neutrophils % (A) 76 %; Platelet Count 177 k/uL (150-450); RBC 4.09 m/uL (3.80-5.40); RDW 12.5 % (11.5-15.5); WBC 11.3 k/uL (3.8-10.6)
--- NOTE | 2020-07-04 02:40 | P.HPOB ---
History of Present Illness H&P Date: 07/04/20 Chief Complaint: Labor 24 year old presents at 39 weeks 5 days in labor. Her cervix is 7/80/-2 and she is kurt irregularly. heart tones 135 with moderate variability. Review of Systems All systems: negative Constitutional: Denies chills, Denies fever Eyes: denies blurred vision, denies pain Ears, nose, mouth and throat: Denies headache, Denies sore throat Cardiovascular: Denies chest pain, Denies shortness of breath Respiratory: Denies cough Gastrointestinal: Denies abdominal pain, Denies diarrhea, Denies nausea, Denies vomiting Genitourinary: Denies dysuria, Denies hematuria Musculoskeletal: Denies myalgias Integumentary: Denies pruritus, Denies rash Neurological: Denies numbness, Denies weakness Psychiatric: Denies anxiety, Denies depression Endocrine: Denies fatigue, Denies weight change Past Medical History Past Medical History: No Reported History Additional Past Medical History / Comment(s): OB history: she has had 3 normal vaginal deliveries. This is her fourth and she has had care with Dr Mejia. O+, abs neg, Rub Imm, RPR NR, Hep B neg. GBS neg. History of Any Multi-Drug Resistant Organisms: None Reported Past Surgical History: No Surgical Hx Reported Past Anesthesia/Blood Transfusion Reactions: No Reported Reaction Past Psychological History: No Psychological Hx Reported Smoking Status: Never smoker Past Alcohol Use History: None Reported Past Drug Use History: None Reported - Past Family History Mother Family Medical History: No Reported History Medications and Allergies Home Medications Medication Instructions Recorded Confirmed Type Pnv,Calcium 72/Iron/Folic Acid 1 tab PO DAILY 04/05/16 07/04/20 History [ Plus Tablet] Allergies Allergy/AdvReac Type Severity Reaction Status Date / Time No Known Allergies Allergy Verified 07/04/20 01:51 Exam Osteopathic Statement: *. No significant issues noted on an osteopathic stru ctural exam other than those noted in the History and Physical/Consult. Vital Signs Temp Pulse Resp BP Pulse Ox 07/04/20 02:18 97.9 F 79 16 136/80 100 07/04/20 02:00 97.9 F 79 16 136/80 100 Intake and Output 07/03/20 07/03/20 07/04/20 14:59 22:59 06:59 Other: Weight 76.204 kg Heart: Regular rate and rhythm Lungs: Clear to auscultation bilaterally Abdomen: Soft, nontender Extremities: Negative Homans sign Assessment and Plan (1) Normal labor Current Visit: Yes Status: Acute Code(s): O80 - ENCOUNTER FOR FULL-TERM UNCOMPLICATED DELIVERY; Z37.9 - OUTCOME OF DELIVERY, UNSPECIFIED SNOMED Code(s): 29226117 Plan: 1. admit to [facility] 2. Pt would like an epidural -will get cbc and call anesthesia 3. expectant management 4. anticipate normal vaginal delivery
[2020-07-04] MEDS ORDERED: fentaNYL (PF) 50 MCG/ML 5 ML AMP ONE (02:43)
[2020-07-04] MEDS ORDERED: ROPIVACAINE 5MG/ML 20ML VIAL ONE (02:43)
[2020-07-04] MEDS ORDERED: SODIUM CHLORIDE 0.9% 100 ML BAG ONE (02:43)
[2020-07-04] MEDS ORDERED: LANOLIN CREAM 5 GM TUBE TOPICAL PRN (04:59)
[2020-07-04] MEDS ORDERED: diphenhydrAMINE 50 MG/ML 1 ML VIAL IVP PRN ×2 (04:59)
[2020-07-04] MEDS ORDERED: ZOLPIDEM 5 MG TAB PO PRN (04:59)
[2020-07-04] MEDS ORDERED: SIMETHICONE 80 MG CHEWABLE PO PRN (04:59)
[2020-07-04] MEDS ORDERED: diphenhydrAMINE 25 MG CAP PO PRN (04:59)
[2020-07-04] MEDS ORDERED: ACETAMINOPHEN TAB 325 MG TAB PO PRN (04:59)
[2020-07-04] MEDS ORDERED: BENZOCAINE/MENTHOL SPRAY 1 GM/SPRAY AEROSOL TOPICAL PRN (04:59)
[2020-07-04] MEDS ORDERED: diphenhydrAMINE 50 MG CAP PO PRN (04:59)
[2020-07-04] MEDS ORDERED: HYDROCORTISONE 2.5% RECTAL CREAM 30 GM TUBE RECTAL PRN (04:59)
--- NOTE | 2020-07-04 04:59 | P.PROBDLV ---
Vaginal Delivery Note - . Vaginal Delivery Note: 24 year old presents at 39 weeks 5 days in labor. Her cervix is 7/80/-2 and she is kurt irregularly. heart tones 135 with moderate variability. Patient did get an epidural and was comfortable. Amniotomy performed at 3:21 AM and clear fluid noted. Her cervix was completely dilated at 4:40 AM. She pushed, delivered a viable male over intact perineum under epidural anesthesia at 4:46 AM. Head delivered ECTOR, anterior shoulder delivered gentle downward guidance followed by posterior shoulder and rest of body. Nose and mouth bulb suctioned, cord clamped and cut, infant placed on mother's abdomen. Apgars 9, 9, weight 7 lbs. 2 oz. Placenta delivered spontaneously, intact with three-vessel cord at 4:48 AM. Vagina, cervix, and perineum were inspected. No lacerations noted. Estimated blood loss 200 mL. Mother and baby in stable cond ition.
[2020-07-04] MEDS: IBUPROFEN 600 MG TAB PO SCH ×3 (06:41→21:04)
[2020-07-04] MEDS: SENNOSIDES-DOCUSATE SODIUM 1 EACH TAB PO SCH ×2 (08:19→19:33)
[2020-07-05] MEDS: IBUPROFEN 600 MG TAB PO SCH ×2 (04:40→08:40)
[2020-07-05 06:47] LABS: Basophils % (A) 0 %; Eosinophils # (A) 0.2 k/uL (0-0.7); Eosinophils % (A) 2 %; Lymphocytes # (A) 2.3 k/uL (1.0-4.8); Lymphocytes % (A) 23 %; MCH 32.5 pg (25.0-35.0); MCHC 35.2 g/dL (31.0-37.0); MCV 92.4 fL (80.0-100.0); Mean Platelet Volume 7.9; Monocytes # (A) 0.5 k/uL (0-1.0); Monocytes % (A) 6 %; Neutrophils # (A) 6.6 k/uL (1.3-7.7); Neutrophils % (A) 67 %; Platelet Count 159 k/uL (150-450); RBC 3.68 m/uL (3.80-5.40); RDW 12.6 % (11.5-15.5); WBC 9.8 k/uL (3.8-10.6)
--- NOTE | 2020-07-05 07:00 | P.PNOBGVD ---
Subjective - Subjective Patient reports: Reports appetite normal, Reports voiding normally, Reports pain well controlled, Reports ambulating normally : doing well Objective - Latest Vital Signs Latest vital signs: Vital Signs Temp Pulse Resp BP Pulse Ox 07/05/20 00:00 97.4 F L 62 16 106/69 07/04/20 16:00 97.6 F 74 16 123/65 07/04/20 12:00 98.2 F 87 16 115/79 98 Intake and Output 07/04/20 07/04/20 07/05/20 14:59 22:59 06:59 Intake Total 120 Balance 120 Intake: Oral 120 Other: # Voids 1 1 - Exam Lungs: bilateral: normal Chest: Normal S1, Normal S2 Extremities: Present: normal Abdomen: Present: normal appearance, soft Uterus: Present: normal, firm - Labs Labs: Abnormal Lab Results - Last 24 Hours (Table) 07/05/20 Range/Units 06:15 RBC 3.68 L (3.80-5.40) m/uL Assessment and Plan Assessment: day number #1. Patient is resting without complaints and wishes to go home. Vital signs are stable and she is afebrile. Uterus is firm nontender she's having normal lochia. My impression this is a normal course. Plan is to continue routine care and discharge home later today (1) Normal vaginal delivery Current Visit: No Status: Acute Code(s): O80 - ENCOUNTER FOR FULL-TERM UNCOMPLICATED DELIVERY SNOMED Code(s): 30817847
--- NOTE | 2020-07-05 07:04 | P.DS ---
Providers Date of admission: 07/04/20 02:05 Expected date of discharge: 07/05/20 Attending physician: Pee Mejia Primary care physician: Stated None - Discharge Diagnosis(es) (1) Normal vaginal delivery Current Visit: No Status: Acute Hospital Course: Please see dictated H&P for intimate details of this patient's admission. Brief summary this is a pleasant 24-year-old 4 para 3 female 39-5/7 weeks' who is admitted to labor and delivery in active labor. Patient quickly goes on to have a vaginal delivery viable male infant. Please see dictated delivery note. day 1 patient without complaints she wishes to go home. Patient's felt be stable for discharge home follow up with me in 6 weeks. Procedures: Normal spontaneous vaginal delivery Patient Condition at Discharge: Good Plan - Discharge Summary New Discharge Prescriptions: New Ibuprofen [Motrin] 600 mg PO Q6H #30 tab No Action Pnv,Calcium 72/Iron/Folic Acid [ Plus Tablet] 1 tab PO DAILY Discharge Medication List Pnv,Calcium 72/Iron/Folic Acid [ Plus Tablet] 1 tab PO DAILY 04/05/16 [History] Ibuprofen [Motrin] 600 mg PO Q6H #30 tab 07/05/20 [Rx] Follow up Appointment(s)/Referral(s): Pee Mejia MD [STAFF PHYSICIAN] - 08/17/20 11:00 am Patient Instructions/Handouts: Vaginal Delivery (DC) Activity/Diet/Wound Care/Special Instructions: No intercourse or anything per vagina for 6 weeks. Please call if any fever, chills, excessive vaginal bleeding, and/or abdominal pain. Discharge Disposition: HOME SELF-CARE
[2020-07-05 08:31] VITALS: BP 128/89; PULSE 61; TEMP 97.7
[2020-07-05] MEDS: SENNOSIDES-DOCUSATE SODIUM 1 EACH TAB PO SCH (08:41)
--- NOTE | 2020-07-07 17:16 | P.MSEPDOC ---
Presenting Problems - Arrival Data Date of Arrival on Unit: 07/03/20 Time of Arrival on Unit: 02:00 Mode of Transport: Wheelchair - Complaint OB-Reason for Admission/Chief Complaint: Possible Onset of Labor Comment: Contractions starting around 2129, pain 7/10 contractions Medical History - Information : 4 Para: 3 Term: 3 : 0 Abortions: Spontaneous or Elective: 0 Number of Living Children: 3 - Gestational Age Gestational Age by JESUS (wks/days): 39 Weeks and 5 Days Review of Systems - Review of Systems Constitutional: No problems Breast: No problems ENT: No problems Cardiovascular: No problems Respiratory: No problems Gastrointestinal: No problems Genitourinary: No problems Musculoskeletal: No problems Neurological: No problems Skin: No problems Vital Signs - Temperature Temperature: 97.7 F Temperature Source: Oral - Pulse Right Brachial Pulse Rate: 61 Pulse Assessment Method: Pulse Oximetry - Respirations Respiratory Rate: 16 Oxygen Delivery Method: Room Air O2 Sat by Pulse Oximetry: 99 - Blood Pressure Right Arm Blood Pressure: 128/89 Blood Pressure Mean: 102 Blood Pressure Source: Automatic Cuff Medical Screen Scoring (Pre) - Cervical Exam Dilation: 4-7 cm = 2 Effacement: More than 50% = 2 Membranes: Intact - Uterine Contractions Frequency: > 5 minutes apart = 1 Duration: > 40 seconds = 2 Intensity: Contraction palpated strong = 1 - Maternal Vital Signs Maternal Temperature: N/A Maternal Blood Pressure: N/A Signs of Preeclampsia: N/A Maternal Respirations: N/A - Maternal Trauma Maternal Trauma: N/A - Assessment - Baby A Baseline FHR: 125 Heart Rate - NICHD Category: Category I (Normal) = 0 NST: Reactive - Total Score - Baby A Total Score - Baby A: 8 - Total Score - Baby B Total Score - Baby B: 8 - Total Score - Baby C Total Score - Baby C: 8 - Level of Risk - Baby A Level of Risk - Baby A: Medium (6-9) - Level of Risk - Baby B Level of Risk - Baby B: Medium (6-9) - Level of Risk - Baby C Level of Risk - Baby C: Medium (6-9) Physician Notification (Pre) - Physician Notified Physician Notified Date: 07/04/20 Physician Notified Time: 02:00 New Order Received: Yes - Notification Comment Comment: Admit for labor, may have epidural if possible Disposition - Disposition OB Disposition: Admit, LDRP Suite Discharge Date: 07/05/20 Discharge Time: 09:35 I agree with the RN Medical Screening Exam: Yes Case reviewed; plan agreed upon as documented in EMR&OBIX.: Yes Diagnosis: ENCOUNTER FOR FULL-TERM UNCOMPLICATED DELIVERY
== END 2020-07-05 09:35 | disposition home or self-care (01) | DRG 807 ==
LOC: FBPOP 01:45 → 4FBP 02:05
PROVIDERS: ADMIT Obstetrics & Gynecology; ATTEND Obstetrics & Gynecology
PROC: 10E0XZZ Delivery of Products of Conception, External Approach (ICD-10-PCS; principal; 2020-07-04)
DX: O80 Encounter for full-term uncomplicated delivery (principal); Z37.0 Single live birth; Z3A.39 39 weeks gestation of pregnancy
CPT/HCPCS: 59025; 85025; 86850; 86900; 86901; 99213